=== PATIENT | female | born 1960 | race Asian ===

== ENCOUNTER 2020-06-27 07:05 | Day surgery (SDC) | payer OTHER ==
[~2020-06-27 07:05] MED LIST: Lactated Ringers 1,000 ML IV SCH; Lidocaine 1%/Sod Bicarbonate in NS 8.4% 1 ML Syringe IDERM PRN; Sodium Chloride 0.9% 10 ML Syringe FLUSH PRN
[2020-06-27] MEDS ORDERED: Propofol 200 MG/20 ML SDV ONE (07:47)
[2020-06-27] MEDS ORDERED: Midazolam 1 MG/ML 2 ML SDV ONE (07:47)
[2020-06-27] MEDS ORDERED: fentaNYL 100 MCG/2 ML SDV ONE (07:47)
[2020-06-27] MEDS ORDERED: Lidocaine 1% 6 ML ONE (08:21)
--- NOTE | 2020-06-27 09:19 | PCM.PRNOTE ---
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 Prep was excellent. Large broad-based polyp at hepatic flexure measuring about 2 cm in diameter. Some extrinsic narr owing presumably from adrenal mass near splenic flexure. Mild diverticulosis. Detailed Report: The patient was taken to the endoscopy suite and placed in left lateral decubitus position. Time out was performed and monitored anesthesia care was initiated. A bite block was placed and the endoscope inserted into the mouth. The scope was advanced to the duodenum easily. No abnormalities of the duodenum, stomach or esophagus were noted. Air was suctioned and the scope removed. Next, colonoscopy was performed. External hemorrhoidal skin tag noted. Digital rectal exam was unremarkable. The lubricated colonoscope was then inserted and advanced all the way to the cecum. There was an area of extrinsic narrowing near the flexure which was somewhat challenging to pass, presumably from the known ad renal lesion. The ileocecal valve was visualized. The prep was excellent. On slow withdrawal of the scope, mucosal surfaces were carefully inspected. A large, spherical polyp was noted near the hepatic flexure. A sample was obtained with cold jumbo forceps, and then the hot snare was used to complete polypectomy in piecemeal manner. Most of the lesion was excised. Two large pieces were free in the lumen. Neither could fit through the channel of the scope. A net was used to retrieve one of the pieces after placing submucosal tattoo ink just distal to the site of the lesion. No other polyps were identified. There were a few small diverticula in the sigmoid colon. Air was suctioned prior to removal of the endoscope. The patient tolerated the procedure well.
--- NOTE | 2020-06-27 09:58 | PCM.PREANE ---
Preanesthetic Assessment - Procedure Proposed Procedure: EGD and Colonoscopy - Anesthesia/Transfusion/Family Hx Anesthesia History: No Prior Anesthesia - Review of Systems General: No Symptoms Pulmonary: No Symptoms Cardiovascular: No Symptoms Gastrointestinal: No Symptoms Neurological: No Symptoms Other: Reports: None - Physical Assessment Vital Signs: Last Vital Signs Temp 96.6 F L 06/27/20 09:07 Pulse 58 L 06/27/20 09:07 Resp 16 06/27/20 09:07 BP 111/61 06/27/20 09:07 Pulse Ox 100 06/27/20 09:07 Height: 1.57 m Weight: 51.256 kg ASA Class: 2 Mental Status: Alert & Oriented x3 Airway Class: Mallampati = 1 Dentition: Reports: Dentures, Edentulous Thyro-Mental Finger Breadths: 3 Mouth Opening Finger Breadths: 3 ROM/Head Extension: Full Lungs: Clear to Auscultation, Normal Respiratory Effort Cardiovascular: Regular Rate, Regular Rhythm - Lab Values: Laboratory Last Values COVID-19 PCR Detected (NOT DETECT) H 06/24/20 12:18 - Allergies Allergies/Adverse Reactions: Allergies Allergy/AdvReac Type Severity Reaction Status Date / Time No Known Allergies Allergy Verified 05/30/20 08:34 - Acknowledgements Anesthesia Type Planned: MAC Pt an Appropriate Candidate for the Planned Anesthesia: Yes Alternatives and Risks of Anesthesia Discussed w Pt/Guardian: Yes Pt/Guardian Understands and Agrees with Anesthesia Plan: Yes PreAnesthesia Questionnaire Cardiovascular History: Reports: High Cholesterol, Hypertension Other OB/BYN History: D&C after 2 miscarriages Other Musculoskeletal History: lateral epicondylitis Endocrine/Metabolic History: Reports: Diabetes, Type II, Vitamin D Deficiency - Past Surgical History Endocrine Surgical History: Reports: Other (See Below) Other Endocrine Surgeries/Procedures: adrenal mass - SUBSTANCE USE Smoking Status *Q: Current Every Day Smoker Tobacco Use Within Last Twelve Months: Cigarettes Recreational Drug Use History: No - HOME MEDS Home Medications: Home Meds Bacillus Coagulans/Inulin [Probichew 21 Billion Cell Chw] 2 piece gum CHEW ASDIRECTED 06/26/20 [History] Cholecalciferol (Vitamin D3) [Vitamin D3] 1 tab PO DAILY 06/26/20 [History] Meloxicam 15 mg PO DAILY 06/26/20 [History] Nicotine Polacrilex [Nicorette] 4 mg CHEW ASDIRECTED 06/26/20 [History] amLODIPine [Norvasc] 7.5 mg PO DAILY 06/26/20 [History] atorvaSTATin [Lipitor] 40 mg PO BEDTIME 06/26/20 [History] Ondansetron [Ondansetron ODT] 4 mg PO Q6H PRN #30 tab.rapdis 06/27/20 [Rx] - CURRENT (IN HOUSE) MEDS Current Meds: Current Medications Lactated Ringer's (Ringers, Lactated) 1,000 mls @ 125 mls/hr IV ASDIRECTED MYESHA Stop: 06/27/20 23:00 Last Admin: 06/27/20 07:20 Dose: 125 mls/hr Documented by: Lidocaine/Sodium Bicarbonate (Buffered Lidocaine 1% In Ns 8.4%) 0.25 ml IDERM ONETIME PRN PRN Reason: Prior to IV Start Stop: 06/27/20 18:00 Last Admin: 06/27/20 07:19 Dose: 0.25 ml Documented by: Sodium Chloride (Saline Flush) 10 ml FLUSH ASDIRECTED PRN PRN Reason: Keep Vein Open Stop: 06/27/20 18:00 Discontinued Medications Fentanyl (Sublimaze) Confirm Administered Dose 100 mcg .ROUTE .STK-MED ONE Stop: 06/27/20 07:48 Lidocaine HCl (Xylocaine-Mpf 1%) Confirm Administered Dose 6 mls @ as directed .ROUTE .STK-MED ONE Stop: 06/27/20 08:22 Midazolam HCl (Versed 1 Mg/Ml) Confirm Administered Dose 2 mg .ROUTE .STK-MED ONE Stop: 06/27/20 07:48 Propofol (Diprivan 20 Ml) Confirm Administered Dose 600 mg .ROUTE .STK-MED ONE Stop: 06/27/20 07:48
--- NOTE | 2020-06-27 09:59 | PCM48HPAN ---
Post Anesthesia Note - EVALUATION WITHIN 48HRS OF ANESTHETIC Vital Signs in Normal Range: Yes Patient Participated in Evaluation: Yes Respiratory Function Stable: Yes Airway Patent: Yes Cardiovascular Function Stable: Yes Hydration Status Stable: Yes Pain Control Satisfactory: Yes Nausea and Vomiting Control Satisfactory: Yes Mental Status Recovered: Yes Vital Signs: Last Vital Signs Temp 96.6 F L 06/27/20 09:07 Pulse 58 L 06/27/20 09:07 Resp 16 06/27/20 09:07 BP 111/61 06/27/20 09:07 Pulse Ox 100 06/27/20 09:07
== END 2020-06-27 09:58 | disposition home or self-care (01) ==
LOC: JD.SDS 07:05
PROVIDERS: ATTEND Surgery
DX: D17.5 Benign lipomatous neoplasm of intra-abdominal organs (principal); E27.8 Other specified disorders of adrenal gland; K64.4 Residual hemorrhoidal skin tags; K57.30 Diverticulosis of large intestine without perforation or abscess without bleeding; K56.699 Other intestinal obstruction unspecified as to partial versus complete obstruction; E78.00 Pure hypercholesterolemia, unspecified; E78.5 Hyperlipidemia, unspecified; F17.210 Nicotine dependence, cigarettes, uncomplicated; I10 Essential (primary) hypertension; E11.9 Type 2 diabetes mellitus without complications; Z79.899 Other long term (current) drug therapy
CPT/HCPCS: 43235; 45380; 45381; 45385; J2001; J2250; J2704; J3010; J7120; 00813; U0002

== ENCOUNTER 2020-07-17 17:00 | Emergency (ER) | payer OTHER ==
[2020-07-17] MEDS ORDERED: Sodium Chloride 0.9% 10 ML Syringe FLUSH PRN ×2 (17:53→19:38)
[2020-07-17] MEDS ORDERED: Ondansetron 4 MG/2 ML SDV IVPUSH ONE (17:54)
[2020-07-17] MEDS ORDERED: Sodium Chloride 0.9% 1,000 ML IV ONE (17:54)
--- NOTE | 2020-07-17 19:18 | EDM.PDOC ---
<Pete Flowers - Last Filed: 07/17/20 19:13> ED HPI GENERAL MEDICAL PROBLEM - General Chief Complaint: General Stated Complaint: ANEMIC SENT BY DR JONES Time Seen by Provider: 07/17/20 17:28 Source of Information: Reports: Patient, Provider History Limitations: Reports: No Limitations - History of Present Illness INITIAL COMMENTS - FREE TEXT/NARRATIVE: The patient presents from Dr Jones's clinic for anemia and abdominal pain. 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 The surgery was done in [place] and Dr Gaona was the referring doctor and he was there for the surgery. She has chills but no fever. She has nausea and vomiting and she has a hard time keeping anything down. She has no diarrhea or dysuria. Onset: Gradual Duration: Day(s): Location: Reports: Abdomen Quality: Reports: Sharp Severity: Moderate Improves with: Reports: None Worsens with: Reports: None Associated Symptoms: Reports: Nausea/Vomiting. Denies: Chest Pain, Cough, Fever/Chills, Headaches, Shortness of Breath Generalized Pain Score (Numeric/FACES): 5 - Related Data Allergies Allergy/AdvReac Type Severity Reaction Status Date / Time No Known Allergies Allergy Verified 07/17/20 17:32 Home Meds: Home Meds Bacillus Coagulans/Inulin [Probichew 21 Billion Cell Chw] 2 piece gum CHEW ASDIRECTED 06/26/20 [History] Cholecalciferol (Vitamin D3) [Vitamin D3] 1 tab PO DAILY 06/26/20 [History] Meloxicam 15 mg PO DAILY 06/26/20 [History] Nicotine Polacrilex [Nicorette] 4 mg CHEW ASDIRECTED 06/26/20 [History] amLODIPine [Norvasc] 7.5 mg PO DAILY 06/26/20 [History] atorvaSTATin [Lipitor] 40 mg PO BEDTIME 06/26/20 [History] Ondansetron [Ondansetron ODT] 4 mg PO Q6H PRN #30 tab.rapdis 06/27/20 [Rx] Ondansetron [Zofran ODT] 1 tab PO Q8H PRN #10 tab.dis 07/17/20 [Rx] Past Medical History Cardiovascular History: Reports: High Cholesterol, Hypertension Other PATENT AGENT History: D&C after 2 miscarriages Other Musculoskeletal History: lateral epicondylitis Endocrine/Metabolic History: Reports: Diabetes, Type II, Vitamin D Deficiency - Past Surgical History GI Surgical History: Reports: Other (See Below) Other GI Surgeries/Procedures: abdominal surgery, unsure what it was Endocrine Surgical History: Reports: Other (See Below) Other Endocrine Surgeries/Procedures: adrenal mass Social & Family History - Family History Family Medical History: Noncontributory - Tobacco Use Smoking Status *Q: Never Smoker Second Hand Smoke Exposure: No - Caffeine Use Caffeine Use: Reports: Coffee Other Caffeine Use: 1 cup per day - Recreational Drug Use Recreational Drug Use: No ED ROS GENERAL - Review of Systems Review Of Systems: See Below Constitutional: Reports: No Symptoms HEENT: Reports: No Symptoms Respiratory: Reports: No Symptoms Cardiovascular: Reports: No Symptoms Endocrine: Reports: No Symptoms GI/Abdominal: Reports: Abdominal Pain, Nausea, Vomiting. Denies: Diarrhea : Reports: No Symptoms Musculoskeletal: Reports: No Symptoms ED EXAM, GENERAL - Physical Exam Exam: See Below Exam Limited By: No Limitations General Appearance: Alert, No Apparent Distress Ears: Normal External Exam Nose: Normal Inspection Head: Atraumatic, Normocephalic Neck: Normal Inspection, Supple, Non-Tender Respiratory/Chest: No Respiratory Distress, Lungs Clear, Normal Breath Sounds Cardiovascular: Regular Rate, Rhythm, No Edema, No Murmur GI/Abdominal: Soft, Other (generalized tenderness with an incission to the left upper abdomen with charlene. No drainage or redness.) Back Exam: Normal Inspection Extremities: Normal Inspection Course - Re-Assessments/Exams Free Text/Narrative Re-Assessment/Exam: 07/17/20 19:18 I ordered an IV NS 1L bolus, zofran 4mg IV, UA and lipase. Her labs were done in the clinic. Her WBC was elevated at 11.19. Her Hgb was low at 8.7. Her creatinine is elevated at 1.3. Her glucose is elevated at 234. Her AST is elevated at 85. Her ALT is elevated at 57 along with her alk phos of 121. It is change of shift. Dr Palm to take over. Departure - Departure Disposition: Home, Self-Care 01 Clinical Impression: Postoperative abdominal pain, Anemia - Discharge Information Prescriptions: Ondansetron [Zofran ODT] 1 tab PO Q8H PRN #10 tab.dis PRN Reason: Nausea/Vomiting Instructions: Anemia Referrals: Elaine Jones MD [Primary Care Provider] - Nestor Gaona MD [Physician] - Forms: ED Department Discharge Additional Instructions: You were seen in the emergency room for postoperative abdominal pain, nausea, vomiting, and anemia. Work-up in the ER included blood work, a urinalysis, and a CT scan of your abdomen and pelvis with contrast. Your urinalysis demonstrated some blood (which would be expected following your surgery) but no suggestion of urinary tract infection. The CT scan of your abdomen and pelvis showed irreversible injury to your left kidney, but no other significant findings. A prescription for the anti-nausea medicine Zofran has been sent to [facility], located in the [facility] across [address] from the hospital. You may dissolve 1 tablet of Zofran on your tongue up to every 8 hours, as needed for nausea/vomiting. Please follow-up with your Surgeon Dr. Nestor Gaona on or about , 07/24/2020. Please call his office in the morning to make an appointment. If any other problems, please do not hesitate to return to the ER. Sepsis Event Note (ED) - Evaluation Sepsis Screening Result: No Definite Risk <Frandy Palm - Last Filed: 07/18/20 01:32> Course - Vital Signs Last Recorded V/S: Last Vital Signs Temp 36.6 C 07/17/20 17:27 Pulse 78 07/17/20 17:27 Resp 20 07/17/20 17:27 BP 127/73 07/17/20 17:27 Pulse Ox 100 07/17/20 17:27 Orthostatic Blood Pressure [ 104/70 Standing] - Orders/Labs/Meds Orders: Active Orders 24 hr Category Date Time Status CULTURE URINE [RM] Stat Lab 07/17/20 20:00 Received Peripheral IV Insertion Adult [OM.PC] Routine Oth 07/17/20 17:53 Ordered Labs: Laboratory Tests 07/17/20 07/17/20 Range/Units 17:30 20:00 Lipase 137 (73-393) U/L Urine Color Light yellow (Yellow) Urine Appearance Clear (Clear) Urine pH 7.0 (5.0-8.0) Ur Specific [place] 1.015 (1.005-1.030) Urine Protein Negative (Negative) Urine Glucose (UA) Negative (Negative) Urine Ketones Negative (Negative) Urine Occult Blood 2+ H (Negative) Urine Nitrite Negative (Negative) Urine Bilirubin Negative (Negative) Urine Urobilinogen 0.2 (0.2-1.0) Ur Leukocyte Esterase Trace H (Negative) Urine RBC 0-5 (0-5) /hpf Urine WBC 10-20 H (0-5) /hpf Ur Squamous Epith Cells 5-10 H (0-5) /hpf Urine Bacteria Few (FEW) /hpf Urine Mucus Not seen (FEW) /hpf Meds: Medications Discontinued Medications Generic Name Dose Route Start Last Admin Trade Name Freq PRN Reason Stop Dose Admin Sodium Chloride 1,000 mls @ 1,000 mls/hr 07/17/20 17:54 07/17/20 18:08 Normal Saline IV 07/17/20 18:53 1,000 mls/hr ONETIME ONE Administration Iopamidol 100 ml 07/17/20 19:38 07/17/20 19:53 Isovue-300 (61%) IVPUSH 07/17/20 19:39 100 ml ONETIME ONE Administration Ondansetron HCl 4 mg 07/17/20 17:54 07/17/20 18:09 Zofran IVPUSH 07/17/20 17:55 4 mg ONETIME ONE Administration Sodium Chloride 10 ml 07/17/20 17:53 07/17/20 18:09 Saline Flush FLUSH 10 ml ASDIRECTED PRN Administration Keep Vein Open Sodium Chloride 10 ml 07/17/20 19:38 07/17/20 19:53 Saline Flush FLUSH 10 ml ONETIME PRN Administration Keep Vein Open - Re-Assessments/Exams Free Text/Narrative Re-Assessment/Exam: 07/17/20 20:39 CT of the abdomen and pelvis with contrast is read by Dr. Lauren as: 1. 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 2. Small amount of fluid around the left kidney presumably postoperative. Previous resection of the left-sided mass. 3. Postsurgical change as noted above. 4. Atelectasis within both lung bases with small left-sided pleural effusion. 5. Other findings believed to be incidental. 07/17/20 20:46 CT results discussed with Dr. Gaona at 20:42. He does not feel that much needs to be done at this time. He will come by the ED to discuss the CT find ings with the patient and her , with the intention of discharging her home. He would like me to prescribe for her some Zofran, and have her follow-up with him in 1 week. Departure - Departure Time of Disposition: 20:46 Condition: Good - Discharge Information *PRESCRIPTION DRUG MONITORING PROGRAM REVIEWED*: Not Applicable *COPY OF PRESCRIPTION DRUG MONITORING REPORT IN PATIENT MARISOL: Not Applicable Sepsis Event Note (ED) - Focused Exam Vital Signs: Vital Signs Temp Pulse Resp BP Pulse Ox 07/17/20 17:27 36.6 C 78 20 127/73 100
[2020-07-17] MEDS ORDERED: Iopamidol 612 MG/ML 100 ML Bottle IVPUSH ONE (19:38)
--- NOTE | 2020-07-17 20:27 | CT ---
CT abdomen and pelvis Technique: Multiple axial sections were obtained from above the dome of the diaphragm inferiorly through the pubic symphysis. Intravenous contrast was utilized. No oral contrast has been given. Comparison: Prior CT abdomen and pelvis exam of 06/03/20. Findings: Very small left-sided pleural effusion is noted. Slight bibasilar atelectasis is noted which is worse on the left side. Liver contains no focal abnormality. Gallbladder is somewhat distended without calcified gallstones being seen. Right adrenal gland appears unremarkable. Right kidney shows normal enhancement. Diffuse non-enhancement of the left kidney is seen compatible with renal infarction. Surgical clips are seen from prior resection of previous mass within the left suprarenal region. Small amount of fluid is seen around the left kidney which is presumably postsurgical. Pancreas shows no discrete abnormality. Aorta shows no aneurysm. No retroperitoneal adenopathy or mesenteric abnormalities are seen. No pelvic mass or adenopathy is seen. Small amount of fluid is seen within the dependent pelvis which most likely is residual from prior surgery. There is thickening of the left abdominal muscles with some air being seen compatible with recent surgery. Skin charlene are present. Mild increased density within subcutaneous fat also felt compatible with previous surgery. Delayed images shows contrast excretion from the right kidney with small amount of contrast noted within slightly dilated bladder. Bone window settings were reviewed which shows mild scattered degenerative change within the spine. No acute osseous finding is appreciated. Impression: 1. 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 2. Small amount of fluid around the left kidney presumably postoperative. Previous resection of left-sided mass. 3. Postsurgical change as noted above. 4. Atelectasis within both lung bases with small left-sided pleural effusion. 5. Other findings believed to be incidental. Diagnostic code #5 This report was dictated in MDT
== END 2020-07-17 21:18 | disposition home or self-care (01) ==
LOC: JD.ED 17:00
DX: G89.18 Other acute postprocedural pain (principal); R10.12 Left upper quadrant pain; D64.9 Anemia, unspecified; I10 Essential (primary) hypertension; E11.9 Type 2 diabetes mellitus without complications; E78.00 Pure hypercholesterolemia, unspecified; Z79.899 Other long term (current) drug therapy
CPT/HCPCS: 36415; 74177; 81001; 83690; 87086; 96361; 96374; 99284; J2405; J7030; Q9967; 99283

== ENCOUNTER 2020-11-01 10:10 | Emergency (ER) | payer OTHER ==
[2020-11-01] MEDS ORDERED: Sodium Chloride 0.9% 10 ML Syringe FLUSH PRN (10:57)
[2020-11-01] MEDS ORDERED: Ondansetron 4 MG/2 ML SDV IVPUSH ONE (11:04)
[2020-11-01] MEDS ORDERED: Sodium Chloride 0.9% 1,000 ML IV STA ×2 (11:04→13:21)
--- NOTE | 2020-11-01 11:46 | EDM.PDOC ---
ED HPI GENERAL MEDICAL PROBLEM - General Chief Complaint: Syncope Stated Complaint: CHEMO PT /SYNCOPE/FEELS DEHYDRATED Time Seen by Provider: 11/01/20 10:55 Source of Information: Reports: Patient, RN Notes Reviewed History Limitations: Reports: No Limitations - History of Present Illness INITIAL COMMENTS - FREE TEXT/NARRATIVE: Patient is a 60-year-old female presenting to the emergency department after having a syncopal episode at home. She states that over the last few days, she has gotten dizzy upon standing. 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 She has not been taking in adequate fluids per her report and feels that she could be dehydrated. The syncopal event occurred while she was sitting on the toilet. She was not having a bowel movement. It was witnessed by her . She did not hit her head and denies any type of pain at this time. She also complains of feeling nauseous but has not had any vomiting. She does have Zofran at home as needed for nausea but she has not used that thus far today. She denies any chest pain or shortness of breath. - Related Data Allergies Allergy/AdvReac Type Severity Reaction Status Date / Time No Known Allergies Allergy Verified 11/01/20 10:45 Home Meds: Home Meds Bacillus Coagulans/Inulin [Probichew 21 Billion Cell Chw] 2 piece gum CHEW ASDIRECTED 06/26/20 [History] Cholecalciferol (Vitamin D3) [Vitamin D3] 1 tab PO DAILY 06/26/20 [History] Meloxicam 15 mg PO DAILY 06/26/20 [History] Nicotine Polacrilex [Nicorette] 4 mg CHEW ASDIRECTED 06/26/20 [History] amLODIPine [Norvasc] 7.5 mg PO DAILY 06/26/20 [History] atorvaSTATin [Lipitor] 40 mg PO BEDTIME 06/26/20 [History] Ondansetron [Ondansetron ODT] 4 mg PO Q6H PRN #30 tab.rapdis 06/27/20 [Rx] Ondansetron [Zofran ODT] 1 tab PO Q8H PRN #10 tab.dis 07/17/20 [Rx] oxyCODONE 5 mg PO Q4H PRN #20 tab 07/18/20 [Rx] Past Medical History Cardiovascular History: Reports: High Cholesterol, Hypertension 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: D&C after 2 miscarriages Other Musculoskeletal History: lateral epicondylitis Endocrine/Metabolic History: Reports: Diabetes, Type II, Vitamin D Deficiency Oncologic (Cancer) History: Reports: Other (See Below) 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 Denies: Fever, Chills HEENT: Reports: No Symptoms Respiratory: Reports: No Symptoms. Denies: Shortness of Breath, Cough Cardiovascular: Reports: No Symptoms Endocrine: Reports: No Symptoms GI/Abdominal: Reports: Nausea. Denies: Abdominal Pain, Diarrhea, Vomiting : Reports: No Symptoms Musculoskeletal: Reports: No Symptoms Skin: Reports: No Symptoms Neurological: Reports: Dizziness, Syncope. Denies: Confusion, Headache Psychiatric: Reports: No Symptoms Hematologic/Lymphatic: Reports: No Symptoms Immunologic: Reports: No Symptoms - Physical Exam Exam: See Below General Appearance: Alert, WD/WN, No Apparent Distress Respiratory/Chest: No Respiratory Distress, Lungs Clear, Normal Breath Sounds, No Accessory Muscle Use, Chest Non-Tender Cardiovascular: Normal Peripheral Pulses, Regular Rate, Rhythm, No Edema, No Gallop, No JVD, No Murmur, No Rub GI/Abdominal: Normal Bowel Sounds, Soft, Non-Tender, No Organomegaly, No Distention, No Abnormal Bruit, No Mass Neuro Exam (Abbreviated): Alert, Oriented, CN II-XII Intact, Normal Cognition, Normal Gait, Normal Reflexes, No Motor/Sensory Deficits Extremities: Normal Inspection, Normal Range of Motion, Non-Tender, No Pedal Edema, Normal Capillary Refill Psychiatric: Normal Affect, Normal Mood Skin Exam: Warm, Dry, Intact, Normal Color, No Rash Course - Vital Signs Last Recorded V/S: Last Vital Signs Temp 97.3 F 11/01/20 10:40 Pulse 81 12/26/20 10:40 Resp 16 11/01/20 10:40 BP 90/75 11/01/20 10:40 Pulse Ox 99 11/01/20 10:40 Orthostatic Blood Pressure [ 91/62 Standing] Orthostatic Blood Pressure [ 86/75 Sitting] Orthostatic Blood Pressure [ 99/82 Supine] - Orders/Labs/Meds Orders: Active Orders 24 hr Category Date Time Status EKG Documentation Completion [RC] STAT Care 11/01/20 11:05 Active Orthostatic Vital Signs [RC] ASDIRECTED Care 11/01/20 10:57 Active Peripheral IV Care [RC] . DIRECTED Care 11/01/20 10:58 Active Abdomen 1V Flat [CR] Stat Exams 11/01/20 12:24 Taken Chest 1V Frontal [CR] Stat Exams 11/01/20 10:57 Taken CORONAVIRUS COVID-19 JENNIE [MOLEC] Routine Lab 11/01/20 12:37 Received PRO B-TYPE NATRIUR PEPT,BNPPRO [CHEM] Stat Lab 11/01/20 11:45 Received UA W/MICROSCOPIC [URIN] Stat Lab 11/01/20 12:10 Ordered Heparin Sodium [Heparin Lock Flush 100 Units/ML] Med 11/01/20 12:14 Active 500 units FLUSH ASDIRECTED PRN Sodium Chloride 0.9% [Normal Saline] 1,000 ml Med 11/01/20 13:21 Ordered IV NOW Sodium Chloride 0.9% [Saline Flush] Med 11/01/20 10:57 Active 10 ml FLUSH ASDIRECTED PRN Peripheral IV Insertion Adult [OM.PC] Stat Oth 11/01/20 10:57 Ordered Medication Orders Heparin Sodium (Porcine) (Heparin Lock Flush 100 Units/Ml) 500 units FLUSH ASDIRECTED PRN PRN Reason: Other Sodium Chloride (Normal Saline) 1,000 mls @ 999 mls/hr IV NOW STA Stop: 11/01/20 14:21 Sodium Chloride (Saline Flush) 10 ml FLUSH ASDIRECTED PRN PRN Reason: Keep Vein Open Last Admin: 11/01/20 12:08 Dose: 10 ml Documented by: MIRYAM Labs: Laboratory Tests 11/01/20 11/01/20 Range/Units 11:45 11:45 WBC 5.18 (3.98-10.04) K/mm3 RBC 4.09 (3.98-5.22) M/mm3 Hgb 11.3 D (11.2-15.7) gm/dl Hct 37.1 (34.1-44.9) % MCV 90.7 (79.4-94.8) fl MCH 27.6 (25.6-32.2) pg MCHC 30.5 L (32.2-35.5) g/dl RDW Std Deviation 60.3 H (36.4-46.3) fL Plt Count 557 H D (182-369) K/mm3 MPV 8.5 L (9.4-12.3) fl Neut % (Auto) 24.4 L (34.0-71.1) % Lymph % (Auto) 73.0 H (19.3-51.7) % [place] % (Auto) 0.2 L (4.7-12.5) % Eos % (Auto) 1.0 (0.7-5.8) Baso % (Auto) 0.6 (0.1-1.2) % Neut # (Auto) 1.27 L (1.56-6.13) K/mm3 Lymph # (Auto) 3.78 H (1.18-3.74) K/mm3 [place] # (Auto) 0.01 L (0.24-0.36) K/mm3 Eos # (Auto) 0.05 (0.04-0.36) K/mm3 Baso # (Auto) 0.03 (0.01-0.08) K/mm3 Manual Slide Review Abnormal smear Sodium 153 H D (136-145) mEq/L Potassium 4.3 (3.5-5.1) mEq/L Chloride 115 H D (98-107) mEq/L Carbon Dioxide 29 (21-32) mEq/L Anion Gap 13.3 (5-15) BUN 16 (7-18) mg/dL Creatinine 1.6 H (0.55-1.02) mg/dL Est Cr Clr Drug Dosing 26.86 mL/min Estimated GFR (MDRD) 33 (>60) mL/min BUN/Creatinine Ratio 10.0 L (14-18) Glucose 102 (74-106) mg/dL Calcium 9.3 (8.5-10.1) mg/dL Total Bilirubin 0.5 (0.2-1.0) mg/dL AST 23 (15-37) U/L ALT 16 (14-59) U/L Alkaline Phosphatase 106 (46-116) U/L Troponin I 0.148 H* (0.00-0.056) ng/mL C-Reactive Protein <0.2 (<1.0) mg/dL Total Protein 6.8 (6.4-8.2) g/dl Albumin 3.4 (3.4-5.0) g/dl Globulin 3.4 gm/dL Albumin/Globulin Ratio 1.0 (1-2) Meds: Medications Generic Name Dose Route Start Last Admin Trade Name Freq PRN Reason Stop Dose Admin Heparin Sodium (Porcine) 500 units 11/01/20 12:14 Heparin Lock Flush 100 Units/Ml FLUSH ASDIRECTED PRN Other Sodium Chloride 1,000 mls @ 999 mls/hr 11/01/20 13:21 Normal Saline IV 11/01/20 14:21 NOW STA Sodium Chloride 10 ml 11/01/20 10:57 11/01/20 12:08 Saline Flush FLUSH 10 ml ASDIRECTED PRN Administration Keep Vein Open Discontinued Medications Generic Name Dose Route Start Last Admin Trade Name Freq PRN Reason Stop Dose Admin Sodium Chloride 1,000 mls @ 999 mls/hr 11/01/20 11:04 11/01/20 12:07 Normal Saline IV 11/01/20 12:04 999 mls/hr NOW STA Administration Ondansetron HCl 4 mg 11/01/20 11:04 11/01/20 12:07 Zofran IVPUSH 11/01/20 11:05 4 mg ONETIME ONE Administration - Re-Assessments/Exams Free Text/Narrative Re-Assessment/Exam: Patient is a 60-year-old female presenting to the emergency department with complaints of syncopal episode, dizziness upon standing, and nausea. She receives chemotherapy treatment 3 times per week for what she describes as left- sided lung cancer. She feels that she is likely dehydrated as she has not been taking an adequate amount of fluid. I have ordered CBC, CMP, CRP, urinalysis, Troponin, chest x-ray, orthostatic vital signs, EKG. I will give her 1 L bolus of normal saline, as well as 4 mg IV Zofran for nausea. 11/01/20 11:58 Patient is noted to be orthostatic. Heart rate went from 82 lying to 115 standing. She reported feeling dizzy with standing as well. Blood pressure dropped minimally from 99/82 lying to 91/62 standing. 11/01/20 13:24 Hematology was significant for sodium elevated at 153, creatinine elevated 1.6, troponin elevated at 0.148. Patient continues to deny chest pain or shortness of breath. EKG shows no acute ischemia. Chest x-ray is normal with no signs of pulmonary vascular congestion. Vital signs remained stable. I added on a proBNP. Called [facility] and spoke with film developing machine operator, Dr. Nunes. She recommended transfer to [facility]. She did not recommend that we start a heparin drip at this time. Spoke with hospitalist, Dr. Urbina. He recommended to give her another liter of NS bolus and then infuse at 150 ml/hr. Visited with patient and her and they both in agreement with this plan. Patient will be transported by ground ambulance. Departure - Departure Time of Disposition: 13:24 Disposition: DC/Tfer to Acute Hospital 02 Condition: Good Clinical Impression: NSTEMI (non-ST elevated myocardial infarction) - Discharge Information Referrals: Raudel Fleming MD [Primary Care Provider] - Forms: ED Department Discharge Sepsis Event Note (ED) - Evaluation Sepsis Screening Result: No Definite Risk - Focused Exam Vital Signs: Vital Signs Temp Pulse Resp BP Pulse Ox 11/01/20 10:40 97.3 F 81 16 90/75 99 - My Orders Last 24 Hours: My Active Orders 11/01/20 10:57 Orthostatic Vital Signs [RC] ASDIRECTED Chest 1V Frontal [CR] Stat Sodium Chloride 0.9% [Saline Flush] 10 ml FLUSH ASDIRECTED PRN Peripheral IV Insertion Adult [OM.PC] Stat 11/01/20 10:58 Peripheral IV Care [RC] . DIRECTED 11/01/20 11:05 EKG Documentation Completion [RC] STAT 11/01/20 11:45 PRO B-TYPE NATRIUR PEPT,BNPPRO [CHEM] Stat 11/01/20 12:10 UA W/MICROSCOPIC [URIN] Stat 11/01/20 12:14 Heparin Sodium [Heparin Lock Flush 100 Units/ML] 500 units FLUSH ASDIRECTED PRN 11/01/20 12:24 Abdomen 1V Flat [CR] Stat 11/01/20 12:37 CORONAVIRUS COVID-19 JENNIE [MOLEC] Routine 11/01/20 13:21 Sodium Chloride 0.9% [Normal Saline] 1,000 ml IV NOW - Assessment/Plan Last 24 Hours: My Active Orders 11/01/20 10:57 Orthostatic Vital Signs [RC] ASDIRECTED Chest 1V Frontal [CR] Stat Sodium Chloride 0.9% [Saline Flush] 10 ml FLUSH ASDIRECTED PRN Peripheral IV Insertion Adult [OM.PC] Stat 11/01/20 10:58 Peripheral IV Care [RC] . DIRECTED 11/01/20 11:05 EKG Documentation Completion [RC] STAT 11/01/20 11:45 PRO B-TYPE NATRIUR PEPT,BNPPRO [CHEM] Stat 11/01/20 12:10 UA W/MICROSCOPIC [URIN] Stat 11/01/20 12:14 Heparin Sodium [Heparin Lock Flush 100 Units/ML] 500 units FLUSH ASDIRECTED PRN 11/01/20 12:24 Abdomen 1V Flat [CR] Stat 11/01/20 12:37 CORONAVIRUS COVID-19 JENNIE [MOLEC] Routine 11/01/20 13:21 Sodium Chloride 0.9% [Normal Saline] 1,000 ml IV NOW
--- NOTE | 2020-11-02 09:38 | CR ---
Abdomen: Supine view of the abdomen obtained. Comparison: Prior CT abdomen and pelvis study of 07/17/20, no prior plain film exam is available. Findings: Bowel gas pattern appears normal. No abnormal calcifications are seen. Bony structures are grossly intact. Surgical clips are seen within the left upper abdomen. Impression: 1. Findings as noted above. 2. Nothing acute is definitely appreciated. Diagnostic code #2
--- NOTE | 2020-11-03 15:03 | CR ---
Chest: Portable view of the chest was obtained. Comparison: Prior chest x-ray of 06/05/20. Heart size and mediastinum are within normal limits. Multiple surgical clips are seen within the left upper abdomen. Right-sided infusion catheter is seen. Nodular density within the left base is seen. Uncertain if this is within the lung parenchyma. Lungs otherwise are clear. Bony structures are grossly intact. Impression: 1. Nodule within the left base. Uncertain if this is within the lung. Chest CT would help differentiate. 2. Other findings as noted above. Nothing acute is otherwise seen. Diagnostic code #9
== END 2020-11-01 14:10 ==
LOC: JD.ED 10:10
DX: I21.4 Non-ST elevation (NSTEMI) myocardial infarction (principal); R55 Syncope and collapse; R53.1 Weakness; I10 Essential (primary) hypertension; E78.00 Pure hypercholesterolemia, unspecified; E11.9 Type 2 diabetes mellitus without complications; Z79.899 Other long term (current) drug therapy; Z20.828 Contact with and (suspected) exposure to other viral communicable diseases
CPT/HCPCS: 36415; 71045; 74018; 80053; 81001; 83880; 84484; 85025; 86140; 87635; 93005; 96374; 99285; J2405; J7030; U0002

== ENCOUNTER 2024-12-05 07:14 | Emergency (ER) | payer OTHER ==
[2024-12-05 07:54] LABS: BASOPHILS PERCENT AUTO 0.6 % (0.0-1.0); EOSINOPHILS ABSOLUTE AUTO 0.2 K/mm3 (0.0-0.4); EOSINOPHILS PERCENT AUTO 2.3 % (0.0-6.0); HEMATOCRIT 42.6 % (37.0-47.0); HEMOGLOBIN 14.1 gm/dl (12.0-16.0); IMMATURE GRAN ABSOLUTE AUTO 0.06 K/mm3 (0.00-0.05); IMMATURE GRAN PERCENT AUTO 0.9 % (0.0-0.4); LYMPHOCYTES ABSOLUTE AUTO 1.8 K/mm3 (1.0-4.8); LYMPHOCYTES PERCENT AUTO 27.5 % (24.0-44.0); MEAN CORPUSCULAR HEMOGLOBIN 32.8 pg (28.0-32.0); MEAN CORPUSCULAR HGB CONC 33.1 g/dl (32.0-36.0); MEAN CORPUSCULAR VOLUME 99.1 fl (83.0-99.0); MEAN PLATELET VOLUME 8.5 fl (9.4-12.3); MONOCYTES ABSOLUTE AUTO 0.7 K/mm3 (0.0-0.8); MONOCYTES PERCENT AUTO 11.3 % (0.0-8.0); NEUTROPHILS ABSOLUTE AUTO 3.7 K/mm3 (1.8-7.7); NEUTROPHILS PERCENT AUTO 57.4 % (41.0-71.0); PLATELET COUNT,PLT 274 K/mm3 (150-400)
[2024-12-05 08:11] LABS: A/G RATIO 0.9 (1-2); ALBUMIN 3.5 g/dl (3.4-5.0); BILIRUBIN TOTAL 0.8 mg/dL (0.2-1.0); BUN/CREATININE RATIO 17.9 (14-18); CALCIUM 9.3 mg/dL (8.5-10.1); CREATININE 1.4 mg/dL (0.55-1.02); EST CRCL DRUG DOSING (CG) 30.63 mL/min; PROTEIN TOTAL,TP 7.4 g/dl (6.4-8.2)
[2024-12-05] MEDS: Sodium Chloride 0.9% 1,000 ML IV ONE (08:15)
[2024-12-05] MEDS: Haloperidol Lactate 5 MG/ML SDV IVPUSH ONE ×2 (08:16→08:26)
[2024-12-05] MEDS: Sodium Chloride 0.9% 10 ML Syringe FLUSH PRN ×2 (08:17→09:19)
[2024-12-05] MEDS: Iopamidol 612 MG/ML 30 ML SDV IVPUSH ONE (09:19)
[2024-12-05] MEDS: Iopamidol 612 MG/ML 100 ML Bottle IVPUSH ONE (09:20)
[2024-12-05] MEDS: Morphine 4 MG/ML Syringe IVPUSH ONE ×2 (09:34→10:22)
[2024-12-05] MEDS: Sodium Chloride 0.9% 500 ML IV SCH (09:37)
[2024-12-05 09:51] LABS: APPEARANCE,URINE CLEAR (Clear); BILIRUBIN,URINE NEGATIVE (Negative); COLOR,URINE YELLOW (Yellow); GLUCOSE,URINE NEGATIVE (Negative); KETONES,URINE NEGATIVE (Negative); LEUKOCYTE ESTERASE,URINE NEGATIVE (Negative); NITRITE,URINE NEGATIVE (Negative); OCCULT BLOOD,URINE NEGATIVE (Negative); PROTEIN,URINE NEGATIVE (Negative); UROBILINOGEN,URINE 0.2 (0.2-1.0)
== END 2024-12-05 12:00 | disposition home or self-care (01) ==
LOC: JD.ED 07:14
DX: K59.00 Constipation, unspecified (principal); E27.9 Disorder of adrenal gland, unspecified; C34.90 Malignant neoplasm of unspecified part of unspecified bronchus or lung; C79.9 Secondary malignant neoplasm of unspecified site; I12.9 Hypertensive chronic kidney disease with stage 1 through stage 4 chronic kidney disease, or unspecified chronic kidney disease; N18.9 Chronic kidney disease, unspecified; E78.00 Pure hypercholesterolemia, unspecified; E11.22 Type 2 diabetes mellitus with diabetic chronic kidney disease; F17.200 Nicotine dependence, unspecified, uncomplicated
CPT/HCPCS: 36415; 71046; 71260; 74177; 76775; 80053; 81003; 83690; 84484; 85025; 87428; 93005; 96361; 96374; 96375; 96376; 99285; J1630; J2270; J7030; J7040; Q9967; 93010

== ENCOUNTER 2025-10-09 01:27 | Emergency (ER) | payer MEDICARE, OTHER ==
[2025-10-09] MEDS ORDERED: Sodium Chloride 0.9% 10 ML Syringe FLUSH PRN (02:04)
[2025-10-09 02:36] LABS: BASOPHILS ABSOLUTE AUTO 0.1 K/mm3 (0.0-0.2); BASOPHILS PERCENT AUTO 1.0 % (0.0-1.0); EOSINOPHILS ABSOLUTE AUTO 0.3 K/mm3 (0.0-0.4); EOSINOPHILS PERCENT AUTO 4.1 % (0.0-6.0); IMMATURE GRAN ABSOLUTE AUTO 0.01 K/mm3 (0.00-0.05); IMMATURE GRAN PERCENT AUTO 0.2 % (0.0-0.4); LYMPHOCYTES ABSOLUTE AUTO 1.4 K/mm3 (1.0-4.8); LYMPHOCYTES PERCENT AUTO 23.4 % (24.0-44.0); MEAN PLATELET VOLUME 9.5 fl (9.4-12.3); MONOCYTES ABSOLUTE AUTO 0.6 K/mm3 (0.0-0.8); MONOCYTES PERCENT AUTO 9.4 % (0.0-8.0); NEUTROPHILS ABSOLUTE AUTO 3.8 K/mm3 (1.8-7.7); NEUTROPHILS PERCENT AUTO 61.9 % (41.0-71.0); NRBC ABSOLUTE 0.00 (0.00-0.02); NRBC PERCENT 0.0 % (0.0-0.2); PLATELET COUNT,PLT 289 K/mm3 (150-400); RED BLOOD CELL COUNT 4.87 M/mm3 (4.10-5.30); WHITE BLOOD CELL COUNT,WBC 6.06 K/mm3 (3.9-11.3)
[2025-10-09 03:00] LABS: BLOOD UREA NITROGEN,BUN 7.0 mg/dL (7-18); CARBON DIOXIDE,CO2 25.0 mEq/L (21-32); CHLORIDE,CL 108.0 mEq/L (98-107); CREATININE 1.3 mg/dL (0.55-1.02); EST CRCL DRUG DOSING (CG) 34.12 mL/min; ESTIMATED GFR 46.0 mL/min (>60); GLUCOSE RANDOM 121.0 mg/dL (70-99); SODIUM,NA 145.0 mEq/L (136-145); TROPONIN I HIGH SENSITIVITY 6.0 pg/mL (<=51)
[2025-10-09 03:02] LABS: POTASSIUM,K 3.7 mEq/L (3.5-5.1)
[2025-10-09] MEDS: Lactated Ringers 1,000 ML IV ONE (03:26)
[2025-10-09] MEDS: Iopamidol 755 Mg/ML 100 ML Bottle IVPUSH ONE (04:48)
== END 2025-10-09 06:07 | disposition home or self-care (01) ==
LOC: JD.ED 01:27
DX: R06.02 Shortness of breath (principal); I10 Essential (primary) hypertension; E78.00 Pure hypercholesterolemia, unspecified; E11.9 Type 2 diabetes mellitus without complications; F17.200 Nicotine dependence, unspecified, uncomplicated; Z86.16 Personal history of COVID-19; Z79.899 Other long term (current) drug therapy
CPT/HCPCS: 36415; 71046; 71275; 80048; 83880; 84484; 85025; 85379; 93005; 99285; J7120; Q9967; 93010; 99283